=== PATIENT | female | born 1985 | race Caucasian/White ===

== ENCOUNTER 2016-04-30 14:29 | Emergency (ER) | payer MEDICAID ==
[2016-04-30] MEDS ORDERED: SODIUM CHLORIDE 0.9% 10 ML FLUSH FLUSH PRN (14:35)
[2016-04-30] MEDS ORDERED: NS 2,000 ML IV ONE (14:43)
[2016-04-30] MEDS: NS 1,000 ML IV ONE ×2 (14:44→16:33)
[2016-04-30] MEDS ORDERED: ACETAMINOPHEN 650 MG SUPP PR ONE (14:48)
[2016-04-30] MEDS ORDERED: IMIPENEM CILASTATIN 500 MG in D5W 100 ML IV ONE (14:54)
[2016-04-30] MEDS ORDERED: LORAZEPAM 2 MG/ML VIAL IV ONE (14:54)
[2016-04-30 15:00] LABS: BLOOD UREA NITROGEN 21 MG/DL (7-17); CALCIUM 9.1 MG/DL (8.4-10.2); CALCULATED OSMOLALITY 264 MOs/Kg (270-290); CHLORIDE 92 mEq/L (98-107); GLUCOSE 186 MG/DL (70-99); SODIUM LEVEL 133 mEq/L (137-146)
[2016-04-30 15:01] VITALS: BMI 27.4
[2016-04-30 15:02] LABS: ALLEN'S TEST PASS; BEb -0.6 (+/- 2); TCO2 20.4 MMOL/L (23-27)
[2016-04-30 15:03] LABS: MPV 10.2 fL (7.4-10.4)
[2016-04-30 15:04] LABS: ABG Draw Site Right Brachial; ABG Draw Tech DP
[2016-04-30 15:05] LABS: SPONT. RR 38 BR/MIN
[2016-04-30 15:07] LABS: PARTIAL THROMB. TIME 34.9 SEC (22-35); PT-INR 1.3
--- NOTE | 2016-04-30 15:32 | EDPRACDOC ---
- General Information Chief Complaint: Overdose Stated Complaint: OVERDOSE Time Seen by Provider: 04/30/16 14:35 Mode of Arrival: Ambulance Home Medications: Home Medications Buprenorphine HCl/Naloxone HCl [Suboxone SL Film (8 mg/2 mg)] 2 film SL DAILY Allergies/Adverse Reactions: Allergies Allergy/AdvReac Type Severity Reaction Status Date / Time No Known Allergies Allergy Verified 11/13/15 08:53 - History of Present Illness Onset: 1 DAY HPI: FOUND UNRESPONSIVE AT HOME. SWELLING AND COLOR CHANGE TO LUE IS NEW; PT AWAKENED WITH NARCAN. KNOWN IVDA. Reason for Seeking Treatment: 911 Call - Treatment Prior to ED Arrival Reported Medications/Treatment [employer] Treated With Medication [employer] YES Meds/Treatments Given O2 via NRB Medications [employer] (Medication/ NARCAN 2MG INTERNASALLY Dose/Time) EMS Treatment ALS IV No ED Past Medical History - History Reviewed Yes Nurses notes reviewed and agree except as marked - Patient Medical History Cardiac History: Reports: Hypercholesterolemia (NO MEDS) Psychological History: Denies: Depression Systemic History: Reports: Cancer (CERVICAL) Surgical History: Reports: Cholecystectomy - Social Medical History Smoking Status: Current status unknown EDM Review of Systems - Review of Systems ROS Unobtainable: Yes Review of systems cannot be obtained due to the patient's medical condition - Physical Exam Constitutional: Confused, Distress, Uncooperative Oriented to: Unable to Test Last recorded Vital Signs: Last Vital Signs Temp 102.0 F H 04/30/16 15:16 Pulse 140 H 04/30/16 15:16 Resp 29 H 04/30/16 15:16 BP 136/51 L 04/30/16 15:16 Pulse Ox 97 04/30/16 15:16 Oxygen Pulse Oxygen Saturation 97 O2 Device Nasal Cannula Oxygen Flow Rate 2 Fraction of Inspired Oxygen ( FIO2) - HEENT Head: Normal ( normocephalic) Eye Exam: Normal (PERRL, EOMI, Sclera white) Oropharynx: Normal (Pharynx:Moist without exudate,Gums-no swelling) Tympanic Membrane: Normal ENT EAC: Normal TMJ: Normal Nose: No Symptoms Reported (septum midline) Neck: Normal (FROM, trachea at midline) - Respiratory/Cardiovascular Respiratory: Normal - CTA (BBS clear to auscultation without adventitious sounds ) Cardiovascular: Tachycardia - GI Auscultation: Normal (NABS) Palpation: Normal (Soft,No rebound or guarding, non distended) Tenderness: Non tender Tellez's Sign: Negative - Musculoskeletal Back: Normal (Non-Tender) Extremities: Other (UNABLE TO PALPATE OR DOPPLER RADIAL PULSE ON LEFT. CAP REFILL DELAYED. SOME REDNESS AND SWELLING AT HAND AND FOREARM. COOL TO TOUCH.) - Integumentary Skin: Normal, Warm, Dry Lymphatics: Normal (no adenopathy) - Neurologic Memory Impaired: Unable to Test Motor Function: Normal (Normal tone, Pulses 2+ No cyanosis or edema, FROM) Cranial Nerve: Normal (CN II-X11 intact sensation, strength 5/5) Cerebellar: Normal Mood Description: Normal - Results 04/30/16 14:35 04/30/16 14:35 WBC 15.9 xk/uL (3.8-10.8) H 04/30/16 14:35 RBC 4.87 xM/uL (4.20-5.40) 04/30/16 14:35 Hgb 16.4 g/dL (12.0-16.0) H 04/30/16 14:35 Hct 47.3 % (36-47) H 04/30/16 14:35 MCV 97 fL (81-99) 04/30/16 14:35 MCH 33.7 pg (27-32) H 04/30/16 14:35 MCHC 34.7 g/dl (33-36) 04/30/16 14:35 RDW 12.6 % (11.5-14.5) 04/30/16 14:35 Plt Count 77 xk/uL (130-400) L 04/30/16 14:35 MPV 10.2 fL (7.4-10.4) 04/30/16 14:35 PT 13.6 SEC (9.2-11.2) H 04/30/16 14:35 INR 1.3 04/30/16 14:35 APTT 34.9 SEC (22-35) 04/30/16 14:35 Puncture Site Right brachial 04/30/16 14:59 pH 7.560 pH UNITS (7.35-7.45) H 04/30/16 14:59 pCO2 22.0 mmHg (35-45) L 04/30/16 14:59 pO2 101.0 mmHg (80-100) H 04/30/16 14:59 HCO3 19.7 MMOL/L (22-26) L 04/30/16 14:59 Total CO2 20.4 MMOL/L (23-27) L 04/30/16 14:59 Base Excess -0.6 (+/- 2) 04/30/16 14:59 Spontaneous Rate 38 BR/MIN 04/30/16 14:59 FiO2 % 5l/m 04/30/16 14:59 Specimen Drawn By Dp 04/30/16 14:59 Sodium 133 mEq/L (137-146) L 04/30/16 14:35 Potassium 3.7 mEq/L (3.5-5.1) 04/30/16 14:35 Chloride 92 mEq/L (98-107) L 04/30/16 14:35 Carbon Dioxide 22 mMOL/L (22-33) 04/30/16 14:35 Anion Gap 23 mEq/L (8-16) H 04/30/16 14:35 BUN 21 MG/DL (7-17) H 04/30/16 14:35 Creatinine 1.10 MG/DL (0.52-1.04) H 04/30/16 14:35 Estimated GFR (MDRD) 58 mL/min (>=60) L 04/30/16 14:35 Glucose 186 MG/DL (70-99) H 04/30/16 14:35 Calculated Osmolality 264 MOs/Kg (270-290) L 04/30/16 14:35 Calcium 9.1 MG/DL (8.4-10.2) 04/30/16 14:35 Total Bilirubin 1.5 MG/DL (0.2-1.3) H 04/30/16 14:35 AST 79 IU/L (14-36) H 04/30/16 14:35 ALT 94 IU/L (9-52) H 04/30/16 14:35 Alkaline Phosphatase 74 IU/L (38-126) 04/30/16 14:35 Troponin I < 0.01 ng/mL (<.04) 04/30/16 14:35 Kta-[id number] Pept 281 pg/mL (0-450) 04/30/16 14:35 Total Protein 8.0 G/DL (6.3-8.2) 04/30/16 14:35 Albumin 4.4 G/DL (3.5-5.0) 04/30/16 14:35 Lab Results 04/30/16 04/30/16 04/30/16 14:59 14:35 14:35 WBC 15.9 H RBC 4.87 Hgb 16.4 H Hct 47.3 H MCV 97 MCH 33.7 H MCHC 34.7 RDW 12.6 Plt Count 77 L MPV 10.2 PT 13.6 H INR 1.3 APTT 34.9 Puncture Site Right brachial pH 7.560 H pCO2 22.0 L pO2 101.0 H HCO3 19.7 L Total CO2 20.4 L Base Excess -0.6 Spontaneous Rate 38 FiO2 % 5l/m Specimen Drawn By Dp Sodium Potassium Chloride Carbon Dioxide Anion Gap BUN Creatinine Estimated GFR (MDRD) Glucose Calculated Osmolality Calcium Total Bilirubin AST ALT Alkaline Phosphatase Troponin I [id number]-Pglwvnrmnpl Pept Total Protein Albumin 04/30/16 14:35 WBC RBC Hgb Hct MCV MCH MCHC RDW Plt Count MPV PT INR APTT Puncture Site pH pCO2 pO2 HCO3 Total CO2 Base Excess Spontaneous Rate FiO2 % Specimen Drawn By Sodium 133 L Potassium 3.7 Chloride 92 L Carbon Dioxide 22 Anion Gap 23 H BUN 21 H Creatinine 1.10 H Estimated GFR (MDRD) 58 L Glucose 186 H Calculated Osmolality 264 L Calcium 9.1 Total Bilirubin 1.5 H AST 79 H ALT 94 H Alkaline Phosphatase 74 Troponin I < 0.01 [id number]-[id number] Pept 281 Total Protein 8.0 Albumin 4.4 - EKG EKG #1 Saline: Normal Rhythm: ST Block: None Hypertrophy: None ST: Normal - Additional Information Additional Information: I SPOKE WITH DR. ARANA INITIALLY. LATER CALLED AND GAVE REPORT AND UPDATED LABS TO HIS PARTNER. [facility] ED Critical Care Note - Critical Care Note Total Time (mins): 44 - Departure Yes I personally saw and evaluated the patient. Disposition: Trans. to Other Hospital Condition: Critical Final Diagnosis: FEBRILE ILLNESS, LUE ISCHEMIA, AMS Instructions: Accidental Overdose, Adult Overdose Referrals: None,No Provider [Primary Care Provider] - One Week Decision to Transfer Time: 15:00 (FILES----ICU AT [facility])
[2016-04-30 15:39] LABS: AMORPHOUS 3+
[2016-04-30 15:50] LABS: URINE OCCULT BLOOD 2+ (NEG/TRACE)
[2016-04-30 15:51] LABS: LEUKOCYTES/URINE NEG (NEGATIVE); NITRITE/URINE NEG (NEGATIVE)
[2016-04-30 16:02] LABS: ALL NEG? NO
--- NOTE | 2016-04-30 16:20 | DIRPT ---
CLINICAL DATA: Found unresponsive by family in bathroom at home, possible overdose, lethargy but responds to painful stimuli, initial encounter EXAM: PORTABLE CHEST 1 VIEW COMPARISON: Portable exam 1554 hours without priors for comparison FINDINGS: Normal heart size, mediastinal contours, and pulmonary vascularity. Lungs clear. No pleural effusion or pneumothorax. Bones unremarkable. IMPRESSION: No acute abnormalities. Electronically Signed By: Gold Whitaker M.D. On: 04/30/2016 16:17
[2016-04-30 16:25] LABS: MDMA* NEG (NEGATIVE); METHAMPHETAMINES NEG (NEGATIVE); OXYCODONE *POSITIVE* (NEGATIVE)
[2016-04-30 16:31] VITALS: BP 113/68; PULSE 131; TEMP 102
[2016-04-30 16:38] LABS: SEG NEUTROPHIL 68 % (45-76)
== END 2016-04-30 16:30 | disposition short-term general hospital (02) ==
LOC: ED 14:29
DX: R50.9 Fever, unspecified (principal); I99.8 Other disorder of circulatory system
CPT/HCPCS: 36415; 36600; 71010; 80053; 80307; 81001; 81025; 82550; 82803; 83605; 83880; 84484; 85007; 85027; 85610; 85730; 87040; 87077; 87086; 87186; 93005; 96361; 96365; 96366; 96375; 99285; J0743; J2060; J3370; J3490; J7060